=== PATIENT | female | born 1980 | race Caucasian/White ===

== ENCOUNTER 2019-11-05 13:38 | Emergency (ER) | payer OTHER, SELFPAY ==
[2019-11-05] MEDS ORDERED: AMOX/K CLAV 875 MG TAB ONE (14:48)
[2019-11-05] MEDS ORDERED: TETANUS & DIPHTHERIA TOX,ADULT 0.5 ML VIAL ONE (14:48)
--- NOTE | 2019-11-05 15:08 | RAD REPORT ---
EXAM DESCRIPTION: RAD - Knee Left 3 View - 11/05/2019 3:00 pm CLINICAL HISTORY: ANIMAL BITE, left knee pain COMPARISON: No comparisons FINDINGS: No fracture, dislocation or periosteal reaction.No joint effusion seen. No joint space natalia rowing. Edema changes are evident in the lateral tissues. No foreign body. IMPRESSION: No bone or joint abnormality. Lateral soft tissue edema or contusion change. No foreign body. Clinical concerns for internal derangement or occult bony injury could be further assessed with MR im aging.
--- NOTE | 2019-11-05 15:18 | ER ---
Nurse's Notes [facility] Name: Tyrel Duenas Age: 39 yrs Sex: Female : 1980 Arrival Date: 11/05/2019 Time: 13:39 Bed 23 Private MD: Diagnosis: Bitten by dog;Laceration without foreign body of knee-left;Puncture wound without foreign body of knee-left Presentation: 11/04 13:55 Chief complaint: Patient states: was walking this morning and a stray dog came out em behind a keen and bit pt on left leg, wrapped in triage, no bleeding noted, pt states one puncture wound and a gash below the knee. Coronavirus screen: Proceed with normal triage. Patient denies a cough. Patient denies shortness of breath or difficulty breathing. Patient denies measured and/or subjective temperature greater than 100.4F prior to today's visit. Patient denies travel on a cruise ship or to a country the [facility] currently lists as an affected area. Patient denies contact with known and/or suspected case of COVID-19. Ebola Screen: Patient negative for fever greater than or equal to 101.5 degrees Fahrenheit, and additional compatible Ebola Virus Disease symptoms Patient denies exposure to infectious person. Patient denies travel to an Ebola-affected area in the 21 days before illness onset. No symptoms or risks identified at this time. Initial Sepsis Screen: Does the patient meet any 2 criteria? No. Patient's initial sepsis screen is negative. Does the patient have a suspected source of infection? Yes: Skin breakdown/wound. Risk Assessment: Do you want to hurt yourself or someone else? Patient reports no desire to harm self or others. Onset of symptoms was November 05, 2019 at 10:00. 13:55 Method Of Arrival: Ambulatory em 13:55 Acuity: KRISTINA 4 em PROFESSOR OF PHYSICS: 13:58 LMP 11/05/2019 em Historical: - Allergies: 13:58 No Known Allergies; em - Home Meds: 13:58 None [Active]; em - PMHx: 13:58 None; em - PSHx: 13:58 Tubal ligation; Appendectomy; em - Immunization history:: Last tetanus immunization: unknown. - Social history:: Smoking status: Patient reports the use of cigarette tobacco products, smokes one pack cigarettes per day. Screenin:13 Abuse screen: Denies threats or abuse. Denies injuries from another. Nutritional ss screening: No deficits noted. Tuberculosis screening: Never had TB. Fall Risk None identified. Assessment: 14:12 Reassessment: Attempted to call [place] [employer] to report dog bite. No answer. Left VM of ss chief officer's phone. 14:19 General: Appears in no apparent distress. comfortable, Behavior is calm, cooperative. ss Pain: Complains of pain in lateral aspect of left knee Pain currently is 0 out of 10 on a pain scale. at worst was 5 out of 10 on a pain scale. Quality of pain is described as tender. Neuro: Level of Consciousness is awake, alert, obeys commands, Oriented to person, place, time, situation. Respiratory: Airway is patent Respiratory effort is even, unlabored, Respiratory pattern is regular, symmetrical. EENT: Nares are clear. Derm: Skin is intact, is healthy with good turgor, Skin is dry, Skin is pink, warm \\T\\ dry. normal. Derm: Bruising that is dark purple, on lateral aspect of left knee. Musculoskeletal: Circulation, motion, and sensation intact. Range of motion: intact in all extremities, Swelling present in lateral aspect of left knee. Injury Description: 1 inch laceration without bleeding noted to L lateral knee. puncture wound noted 3 inches from laceration. No active bleeding noted at this time. Pt reports injury occurred by Dog bite at 1000 today. Was a stray dog. Large breed. 14:46 Reassessment: Called additional number to [place] officer research contracts supervisor and left VM as there ss was no answer. Awaiting return phone call. XRAY at bedside obtaining images. 15:18 Reassessment: performed wound care with NS, soap and irrigation. Pt tolerated well. ss Dressed with non adherent dressing x1, 4 x 4, steri strips and kerlix. Pt tolerated well. No active bleeding. Still awaiting on phone call back from [facility] to report dog bite. Pt verbalizes understanding that she may receive a phone call today so PD can obtain a full report. Pt states,. "I'm not worried about rabies. The dog looked healthy. I think it was somebody's dog. It probably just got out.". Vital Signs: 13:55 BP 122 / 75; Pulse 94; Resp 18; Temp 98.8; Pulse Ox 100% on R/A; Weight 58.97 kg (R); em Height 5 ft. 3 in. (160.02 cm); Pain 0/10; 13:55 Body Mass Index 23.03 (58.97 kg, 160.02 cm) em ED Course: 13:39 Patient arrived in ED. ag5 13:57 Triage completed. em 13:58 Arm band placed on. em 14:13 Patient has correct armband on for positive identification. Bed in low position. Call ss light in reach. 14:21 Bubba Patel PA is PHCP. cp 14:21 Guerrero Catherine MD is Attending Physician. cp 15:00 XRAY Knee LEFT 3 view In Process Unspecified. EDMS 15:21 No provider procedures requiring assistance completed. Patient did not have IV access ss during this emergency room visit. Irrigation on lateral aspect of left knee irrigated with normal saline Hibiclens solution Patient tolerated well. Wound care: was cleaned with Hibiclens, irrigated with normal saline, dressed with Neosporin, 4X4s, Kerlix, SEE NURSES NOTES. Administered Medications: 14:45 Drug: Tetanus-Diphtheria Toxoid Adult 0.5 ml {Sugar Coating Hand: [employer] Exp: ss 06/20/2021. Lot #: [id number]. } Route: IM; Site: left deltoid; 15:20 Follow up: Response: No adverse reaction ss 14:45 Drug: Augmentin 875 mg Route: PO; ss 15:20 Follow up: Response: No adverse reaction ss Outcome: 15:18 Discharge ordered by MD. cp 15:26 Discharged to home ambulatory. ss 15:26 Condition: good 15:26 Discharge instructions given to patient, Instructed on discharge instructions, follow up and referral plans. medication usage, Demonstrated understanding of instructions, follow-up care, medications, wound care, Prescriptions given X 1. 15:26 Patient left the ED. ss Signatures: Dispatcher [employer] Elia Asencio RN RN Ayde Wilson RN RN Bubba Patel PA PA cp Gaskin, Ajare ag5
--- NOTE | 2019-11-05 15:18 | EDPHYS ---
Physician Documentation [facility] Name: Tyrel Duenas Age: 39 yrs Sex: Female : 1980 Arrival Date: 11/05/2019 Time: 13:39 Bed 23 Private MD: ED Physician Guerrero Catherine HPI: 11/04 14:35 This 39 yrs old Female presents to ER via Ambulatory with complaints of Dog cp Bite. 14:35 The patient was bitten on the lateral aspect of left knee, by a dog, for an unknown cp reason, outdoors. Onset: The symptoms/episode began/occurred this morning. Animal information: Patient/Caregiver unable to provide information related to the animal. The animal was reported to appear healthy. is unknown, The animal is unknown and not captured. message left on voicemail of [facility] [employer] by nurse. Secondary to the bite the patient reports a laceration, that is superficial, a puncture wound, that is deep. Associated signs and symptoms: Pertinent positives: swelling at site, ecchymosis, Pertinent negatives: fever. SAP PPM CONSULTANT: 13:58 LMP 11/05/2019 em Historical: - Allergies: 13:58 No Known Allergies; em - Home Meds: 13:58 None [Active]; em - PMHx: 13:58 None; em - PSHx: 13:58 Tubal ligation; Appendectomy; em - Immunization history:: Last tetanus immunization: unknown. - Social history:: Smoking status: Patient reports the use of cigarette tobacco products, smokes one pack cigarettes per day. ROS: 14:40 Skin: Positive for laceration(s), puncture, of the lateral aspect of left knee. cp 14:40 Constitutional: Negative for body aches, chills, fever, poor PO intake. cp 14:40 Neck: Negative for pain with movement, pain at rest, stiffness. cp 14:40 Cardiovascular: Negative for chest pain. 14:40 Respiratory: Negative for cough, shortness of breath, wheezing. 14:40 Abdomen/GI: Negative for abdominal pain, nausea, vomiting, and diarrhea. 14:40 Back: Negative for pain at rest, pain with movement. 14:40 Neuro: Negative for altered mental status, headache. 14:40 All other systems are negative. Exam: 14:45 Constitutional: The patient appears in no acute distress, alert, awake, well developed, cp well nourished. 14:45 Head/Face: Normocephalic, atraumatic. cp 14:45 Chest/axilla: Inspection: normal. 14:45 Cardiovascular: Rate: normal. 14:45 Respiratory: the patient does not display signs of respiratory distress, Respirations: normal. 14:45 Skin: injury, bite(s), of the lateral aspect of left knee, deep puncture type wound posterior lateral knee and 2.5 cm laceration noted lateral knee with superficial abrasions noted, mild swelling and ecchymosis noted, that can be described as no foreign body, with mild bleeding. Vital Signs: 13:55 BP 122 / 75; Pulse 94; Resp 18; Temp 98.8; Pulse Ox 100% on R/A; Weight 58.97 kg (R); em Height 5 ft. 3 in. (160.02 cm); Pain 0/10; 13:55 Body Mass Index 23.03 (58.97 kg, 160.02 cm) em MDM: 14:26 Patient medically screened. cp 14:45 Differential diagnosis: superficial laceration, tendon injury, vascular injury, rabies, cp cellulitis, foreign body, open fracture. 15:17 Data reviewed: vital signs, nurses notes, radiologic studies, plain films. cp 15:17 Counseling: I had a detailed discussion with the patient and/or guardian regarding: the cp historical points, exam findings, and any diagnostic results supporting the discharge/admit diagnosis, radiology results, the need for outpatient follow up, with animal [facility] and [facility] due to unknown animal and status of animal's vaccinations. Recommend wound check with PCP next 1-2 days, to return to the emergency department if symptoms worsen or persist or if there are any questions or concerns that arise at home. Response to treatment: the patient's symptoms have markedly improved after treatment, and as a result, I will discharge patient. Special discussion: I discussed in detail with the patient the higher chance of wound infection based on his presenting history. 15:17 ED course: VSS. Wounds cleaned and dressed. Nursing staff attempted to contact [facility] animal control and message left. Patient encouraged to f/u with [facility] and animal [facility] with instructions to return to ED worsening symptoms. 11/04 14:31 Order name: XRAY Knee LEFT 3 view; Complete Time: 15:16 cp 11/04 15:16 Interpretation: Report reviewed. cp 11/04 14:31 Order name: Wound Care; Complete Time: 14:36 cp 11/04 14:31 Order name: Wound dressing; Complete Time: 14:36 cp Administered Medications: 14:45 Drug: Tetanus-Diphtheria Toxoid Adult 0.5 ml {[employer] Kitchen [employer] Manager: [employer]. Exp: ss 06/20/2021. Lot #: [id number]. } Route: IM; Site: left deltoid; 15:20 Follow up: Response: No adverse reaction ss 14:45 Drug: Augmentin 875 mg Route: PO; ss 15:20 Follow up: Response: No adverse reaction ss Disposition: 15:30 Chart complete. cp 15:55 Co-signature as Attending Physician, Guerrero Catherine MD I agree with the assessment and kdr plan of care. Disposition: 11/05/19 15:18 Discharged to Home. Impression: Bitten by dog, Laceration without foreign body of knee - left, Puncture wound without foreign body of knee - left. - Condition is Stable. - Discharge Instructions: Nonsutured Laceration Care, Puncture Wound, Animal Bite. - Prescriptions for Augmentin 875- 125 mg Oral Tablet - take 1 tablet by ORAL route every 12 hours for 10 days; 20 tablet. - Medication Reconciliation Form, Thank You Letter, Antibiotic Education, Prescription Opioid Use form. - Follow up: Private Physician; When: 1 - 2 days; Reason: Wound Recheck. - Problem is new. - Symptoms have improved. Signatures: Dispatcher [employer] EDGuerrero Gonzales MD MD [facility] Elia Cordero RN RN em Smirch, Shelby, RN RN ss Page, Corey, PA PA cp Corrections: (The following items were deleted from the chart) 15:26 15:18 11/05/2019 15:18 Discharged to Home. Impression: Bitten by dog; Laceration ss without foreign body of knee - left; Puncture wound without foreign body of knee - left. Condition is Stable. Forms are Medication Reconciliation Form, Thank You Letter, Antibiotic Education, Prescription Opioid Use. Follow up: Private Physician; When: 1 - 2 days; Reason: Wound Recheck. Problem is new. Symptoms have improved. cp
[2019-11-05 15:38] VITALS: BP 122/75; TEMP 98.8; O2SAT 100
== END 2019-11-05 15:26 | disposition home or self-care (01) ==
LOC: ER 13:38
DX: S81.032A Puncture wound without foreign body, left knee, initial encounter (principal); W54.0XXA Bitten by dog, initial encounter; Y93.9 Activity, unspecified; Y92.89 Other specified places as the place of occurrence of the external cause; F17.210 Nicotine dependence, cigarettes, uncomplicated; Z23 Encounter for immunization
CPT/HCPCS: 90471; 90714; 99284